=== PATIENT | male | born 1965 | race Caucasian/White ===

== ENCOUNTER → 2018-09-26 | Outpatient (CLI) | payer OTHER ==
[~2018-09-26] VITALS: Ht 180.3 cm; Wt 163.3 kg
[~2018-09-26] MED LIST: ASHWAGANDHA; ASPIR 8181 MG PO; CBD OIL; CO Q-10400 MG PO; FISH OIL 1,4001 EACH PO; FLAX SEED OIL1 EACH PO; GARLIC200 MG PO; GLUCOSAMINE &1 EAC1 PO; GUANFACINE HCL E1 MG PO; HYDROCHLOROTHIA25 M2 PO; L-LYSINE500 M1 PO; LIPITOR 20 MG T20 M1 PO; LUNESTA2 MG PO; MAGOX 400400 MG PO; MEN 50 PLUS MU1 EACH PO; PROSTATE HEALT1 EAC1 PO; SUPER B COMPLE1 EAC2 PO; TURMERIC COMPL1 EACH PO; TURMERIC500 M2 PO; VERAPAMIL E.R240 M1 PO; VITAMIN D32000 UNI1 PO; ZINC50 M1 PO; [UNRECOGNIZED DRUG - OTHER] PO
--- NOTE | 2018-09-29 14:38 | P ---
[facility] [place] [address] PROCEDURE REPORT Name: JOELLEN WELSH Becky Room #: [facility] Cher#: [id number] Admission: 09/26/18 ������������������ Attend Phys: Marco Lujan Discharge: ������������������ Date of : 61 Report #: [id number] THIS REPORT FOR: //name// CC: Marco Quintero DATE OF SERVICE: 09/26/2018 PROCEDURE PERFORMED: Colonoscopy with biopsies. HISTORY OF PRESENT ILLNESS: The patient is a 53-year-old male here for a 5-year followup routine colonoscopy, history of polyps on last colonoscopy. He denies any symptoms. No family history of colon cancer. DESCRIPTION OF PROCEDURE: The risks and benefits of the procedure were explained to the patient, those risks including but not limited to bleeding, perforation and the risk of sedation. He understood these risks and gave informed consent. Sedation was given using propofol per anesthesia. Next, a digital rectal exam was initially performed, which was normal. Next, using a standard Olympus colonoscope, the scope was placed in the patient's anus and advanced under direct vision to the cecum. The overall prep was excellent. The cecum and ileocecal valve were normal in appearance. Ascending and transverse colon were normal. In the descending colon, a 4 mm sessile polyp was noted. This was removed with cold forceps, otherwise normal. The sigmoid colon was normal. The rectal mucosa was normal. On retroflexion, small nonbleeding internal hemorrhoids were noted. Scope was then withdrawn and the procedure terminated. The patient tolerated the procedure well. IMPRESSION: 1. Small colonic polyp. 2. Small internal hemorrhoids. 3. Otherwise, normal colonoscopy. RECOMMENDATIONS: 1. Await biopsy results. 2. If polyp is hyperplastic, repeat in 10 years; if adenomatous polyp, repeat in 5 years. Thank you for allowing me to participate in his care. ��������������������������������������������� <ELECTRONICALLY SIGNED> ���������������������������������������� By: Marco Prater MD ��������������������������������������������� 09/29/18 [id number] Marco Prater MD /nt
--- NOTE | 2018-09-29 17:05 | PATH ---
[facility] [address] PATHOLOGY RPT PROCEDURE Name: JOELLEN WELSH Becky Room #: [facility] Bhanu.#: [id number] ������������������ Admission: 09/26/18 ������������������ Date of : 61 Discharge: Report #: [id number] Path Case #: [id number] [facility] Accession Number: [id number] . 01 Material submitted: . colon - DESCENDING COLON POLYP. Modifiers: descending . 01 Clinical history: . History of polyps Polyp . 02 Diagnosis: Polyp, descending colon polyp, endoscopic biopsy: - Polypoid mucosa with hyperplastic changes and a lymphoid aggregate, compatible with a minute hyperplastic polyp. - Negative for dysplasia. (IUV:director of outreach; 09/29/2018) MBR/09/29/2018 . 02 Electronically signed: . Bozena Issa MD, Pathologist NPI- [id number] . 01 Gross description: . The specimen is received in formalin, labeled "Joellen Welsh, descending colon polyp" and consists of a fragment of pink-moseley tissue measuring 0.3 x 0.2 x 0.1 cm which is entirely submitted in A1. (SDY; 09/26/2018) SYU/SYU . 02 Pathologist provided ICD-10: K63.5 . 02 CPT . 213672 Specimen Comment: A courtesy copy of this report has been sent to Specimen Comment: [phone], , . Specimen Comment: Report sent to ,DR JENKINS / DR FERNANDEZ Performed at: [address], [place], [place] [id number] MD Arron Garsia MD Phone: [phone] Performed at: [address] [id number] MD Bozena Issa MD Phone: [phone]
== END | disposition home or self-care (01) ==
LOC: GI 06:57
DX: Z12.11 Encounter for screening for malignant neoplasm of colon (principal); Z86.010 Personal history of colon polyps; K63.5 Polyp of colon; K64.8 Other hemorrhoids; G47.30 Sleep apnea, unspecified; I10 Essential (primary) hypertension; E78.5 Hyperlipidemia, unspecified; Z98.890 Other specified postprocedural states; Z79.899 Other long term (current) drug therapy; Z79.82 Long term (current) use of aspirin
CPT/HCPCS: 62110; 62900